=== PATIENT | male | born 1960 | race Caucasian/White ===

== ENCOUNTER 2018-07-19 10:30 | Emergency (ER) | payer OTHER ==
--- NOTE | 2018-07-19 10:57 | EDPHY ---
H & P Time Seen by Provider: 07/19/18 10:50 HPI/ROS: Chief complaint: Left hand injury History of present illness: This is a 58-year-old female who presents to the emergency department for injury to his left hand. He was using a power drill to drill through a piece of pipe being when it popped through and struck him in the webspace between his 2nd and 3rd finger. He has had minimal discomfort. Minimal bleeding that is been controlled. Occasionally is feels like he is feeling numbness going up the radial aspect of his middle finger. He denies other associated signs or symptoms including no other paresthesias, no weakness or paralysis, no difficulty moving the fingers, his tetanus is up-to-date. Smoking Status: Current every day smoker Physical Exam: General: Alert, nontoxic. Skin: Small puncture wound to the interdigital web space when the 2nd and 3rd digit of the left hand. No foreign bodies appreciated. Good hemostasis. Musculoskeletal: Patient is flexing extending all joints, all digits all posey well. He is adducting and abducting the fingers well. Vascular: Capillary refill brisk in all fingers. Radial pulse 2 +. Neurologic: Sensation intact in all digits of the left hand using light touch and two-point discrimination. Constitutional: Initial Vital Signs Temperature (C) 36.5 C 07/19/18 10:36 Heart Rate 71 07/19/18 10:36 Respiratory Rate 17 07/19/18 10:36 Blood Pressure 155/82 H 07/19/18 10:36 O2 Sat (%) 96 07/19/18 10:36 O2 Delivery Mode Room Air Allergies/Adverse Reactions: No Known Allergies Allergy (Unverified 07/19/18 10:36) Home Medications: Medication Instructions Recorded Cephalexin [Keflex] 500 mg PO TID 5 Days cap 07/19/18 Lantus 07/19/18 MDM/Departure - MDM Imaging Results: Imaging Impressions Hand X-Ray 07/19/18 10:57 Impression: No acute osseous findings. Imaging: I viewed and interpreted images myself Medications Given: Discontinued Medications Acetaminophen (Tylenol) 1,000 mg PO EDNOW ONE Stop: 07/19/18 11:59 Last Admin: 07/19/18 12:06 Dose: 1,000 mg Cephalexin HCl (Keflex) 500 mg PO EDNOW ONE PRN Reason: Protocol Stop: 07/19/18 11:59 Last Admin: 07/19/18 12:06 Dose: 500 mg Ibuprofen (Motrin) 600 mg PO EDNOW ONE Stop: 07/19/18 11:59 Last Admin: 07/19/18 12:06 Dose: 600 mg ED Course/Re-evaluation: Patient seen under the supervision of my secondary supervising physician Dr. Ze Rhodes. Patient presents for a left hand injury. He has a puncture wound. His hand does appear neurovascularly intact by exam. X-ray is negative. The wound is cleaned and dressed, it is left open to drain. He will be started on Keflex. He is asked to follow up with a hand doctor for recheck. Return precautions are given. Differential Diagnosis: Included but not limited to puncture wound, foreign body contamination, deep structure injury - Depart Disposition: Home, Routine, Self-Care Clinical Impression: Puncture wound, hand Qualifiers: Encounter type: initial encounter Foreign body presence: without foreign body Laterality: left Qualified Code(s): S61.432A - Puncture wound without foreign body of left hand, initial encounter Condition: Good Instructions: Cephalexin (By mouth), Puncture Wound (ED), Acute Wounds (ED) Additional Instructions: Follow-up with a hand doctor or worker's compensation for recheck Take antibiotics as prescribed until finished Keep wound clean with soap and water and apply a loose dressing You can use ibuprofen 600 mg 3 times a day for the next 2-3 days for pain In addition You can take 650 mg of Tylenol with the ibuprofen for additional pain control If symptoms worsen or new symptoms develop return to the emergency room for recheck Prescriptions: Cephalexin [Keflex] 500 mg PO TID 5 Days cap Referrals: NONE *PRIMARY CARE P,. [Primary Care Provider] - As per Instructions Bishnu Moses MD [Medical Doctor] - As per Instructions
[2018-07-19] MEDS ORDERED: CEPHALEXIN 500 MG CAP PO ONE (11:58)
[2018-07-19] MEDS ORDERED: IBUPROFEN 600 MG TAB PO ONE (11:58)
[2018-07-19] MEDS ORDERED: ACETAMINOPHEN 500 MG TAB PO ONE (11:58)
[2018-07-19 12:12] VITALS: BP 117/78
== END 2018-07-19 12:12 | disposition home or self-care (01) ==
DX: S61.432A Puncture wound without foreign body of left hand, initial encounter (principal); W29.8XXA Contact with other powered hand tools and household machinery, initial encounter; Y99.0 Civilian activity done for income or pay